=== PATIENT | female | born 1945 | race Caucasian/White ===

== ENCOUNTER 2017-06-19 09:33 | Outpatient (CLI) | payer OTHER ==
[2013-11-17 23:52] VITALS: BMI 32.3
--- NOTE | 2017-06-19 12:02 | DEXA ---
EXAM: Bone density HISTORY: Postmenopausal bone density evaluation with familial history of osteoporosis on vitamin D s upplementation with history of arthritis and diabetes COMPARISON: 12/29/2015 TECHNIQUE: Digital images of the thoracolumbar spine and hips were provided and calculation of bone density was obtained. FINDINGS: Digital images demonstrate no compression deformities of the thoracolumbar spine. DEXA scan of the lumbar spine is of good quality. The total BMD equals 1.254 grams per square centimeter. (Prior 1.193) T-score is 0.6 and Z-score of 1.7. DEXA of the hips was performed and of good quality. Total bone marrow density of 0.902 grams per square centimeter. (Prior 0.941) T score is - 0.8 and T-score of 0.3. IMPRESSION: Bone density of the hips and lumbar spine demonstrate no osteopenia or osteoporosis by W HO criteria. Overall bone density has improved in the lumbar spine and worsened in the hips. FRAX calculation tool demonstrates a 10-year major osteoporotic fracture risk of 10.1% and hip fractu re risk of 1.6%. T score greater than -1 is normal T score -1 to -2.5 is osteopenia T score less than - 2.5 is osteoporosis
--- NOTE | 2017-06-19 12:05 | MAMMO ---
EXAM: Bilateral digital screening mammogram (2-D and 3-D) History: Screening Comparison: Bilateral mammogram 06/17/2016 Findings: MLO and CC views of bilateral breasts demonstrate scattered fibroglandular breast parenchy ma. CAD was reviewed by the radiologist. Tomosynthesis was performed. Postoperative changes are ag ain seen within the left breast. Stable benign bilateral breast calcifications. There are no domina nt masses, no suspicious microcalcifications and no architectural distortions Impression: Benign stable mammogram. Recommend followup routine screening mammography in 1 year. BIRADS 2
== END 2017-06-19 09:34 | disposition home or self-care (01) ==
LOC: RAD 09:33
PROVIDERS: ATTEND Internal Medicine
DX: Z12.31 Encounter for screening mammogram for malignant neoplasm of breast (principal); Z78.0 Asymptomatic menopausal state
CPT/HCPCS: 77067

== ENCOUNTER → 2017-06-20 | Outpatient (RCR) | payer OTHER ==
[2013-11-17 23:52] VITALS: BMI 32.3
== END ==
PROVIDERS: ATTEND Internal Medicine
DX: R29.6 Repeated falls (principal)

== ENCOUNTER 2017-08-04 08:48 | Outpatient (CLI) ==
[2013-11-17 23:52] VITALS: BMI 32.3
--- NOTE | 2017-08-04 09:34 | DI ---
EXAM: PA and lateral views of the chest HISTORY: Pruritis COMPARISON: Chest x-ray 11/18/2013 FINDINGS: The cardiomediastinal silhouette is normal. There is no pneumothorax or pleural effusion. There is no consolidation, nodule or mass. The osseous structures demonstrate degenerative disease of the spine. IMPRESSION: No acute cardiopulmonary process
== END 2017-08-04 08:49 | disposition home or self-care (01) ==
LOC: RAD 08:48
PROVIDERS: ATTEND Internal Medicine
DX: L29.9 Pruritus, unspecified (principal)

== ENCOUNTER 2018-03-10 20:30 | Outpatient (CLI) ==
[2013-11-17 23:52] VITALS: BMI 32.3
== END 2018-03-10 20:53 | disposition short-term general hospital (02) ==
LOC: AMBL 20:30
PROVIDERS: ATTEND Internal Medicine Geriatric Medicine
DX: R51 Headache (principal); R07.89 Other chest pain; R41.82 Altered mental status, unspecified

== ENCOUNTER 2018-06-19 10:10 | Outpatient (CLI) ==
[2013-11-17 23:52] VITALS: BMI 32.3
--- NOTE | 2018-06-20 09:31 | MAMMO ---
EXAM: Bilateral digital screening mammogram (2-D and 3-D) History: Screening Comparison: Bilateral mammogram 06/19/2017 Findings: MLO and CC views of bilateral breasts demonstrate scattered fibroglandular breast parenchy ma. CAD was reviewed by the radiologist. Tomosynthesis was performed. Postsurgical changes again s een within the left breast. Stable benign bilateral breast calcifications. There are no dominant ma sses, no suspicious microcalcifications and no architectural distortions Impression: Benign stable mammogram. Recommend followup routine screening mammography in 1 year. BIRADS 2
== END 2018-06-19 10:11 | disposition home or self-care (01) ==
LOC: RAD 10:10
PROVIDERS: ATTEND Internal Medicine
DX: Z12.31 Encounter for screening mammogram for malignant neoplasm of breast (principal)